=== PATIENT | female | born 1970 ===

== ENCOUNTER 2017-01-27 06:20 | Day surgery (SDC) | payer OTHER ==
[2017-01-27] MEDS ORDERED: cefOXitin IV 2 gm in Dextrose 2 GM/50 ML BAG IVPB ONE (07:55)
[2017-01-27] MEDS ORDERED: Midazolam 2 MG/2 ML VIAL ONE (07:57)
[2017-01-27] MEDS ORDERED: Propofol 10 mg/ml Inj (20 ML) ONE (07:57)
[2017-01-27] MEDS ORDERED: Lactated Ringer's 1,000 ML IV ONE (08:31)
--- NOTE | 2017-01-27 08:42 | PCM.SURG1 ---
Surgeon's Initial Post Op Note - Surgeon's Notes Surgeon: dr fonseca Senior Qualitative Researcher: none Type of Anesthesia: General LMA Anesthesia Administered By: dr flores Pre-Operative Diagnosis: 46 yr with abnormal uterine bleeding r/o polyp Operative Findings: see the op reort Post-Operative Diagnosis: same with cerrvical polyp and submusal fibroid Operation Performed: myasure/d&c, hysterscopy Specimen/Specimens Removed: ecc. emc. cervical polyp. r/o myoma Estimated Blood Loss: EBL {In ML}: 30 Blood Products Given: N/A Drains Used: No Drains Post-Op Condition: Good Date of Surgery/Procedure: 01/27/17 Time of Surgery/Procedure: 09:00
[2017-01-27 10:00] VITALS: RESP 16; O2SAT 100
[2017-01-27 11:08] VITALS: BP 98/52; PULSE 70; TEMP 97.9
--- NOTE | 2017-01-27 16:15 | OP ---
PROCEDURE DATE: PREOPERATIVE DIAGNOSES: A 46 years old, 4, para with abnormal uterine bleeding, rule out polyp. POSTOPERATIVE DIAGNOSES: A 46 years old 4, para with abnormal uterine bleeding, rule out polyp, with a submucosal fibroid. PROCEDURE: MyoSure dilation and curettage, hysteroscopy, cervical polypectomy. SURGEON: Júnior Gillespie MD. GAME SHOW HOST SURGEON: None. TYPE OF ANESTHESIA: General anesthesia. ANESTHESIA ADMINISTERED BY: Dr. Ivan Lamb. ESTIMATED BLOOD LOSS: 30 mL. COMPLICATIONS: None. DESCRIPTION OF PROCEDURE: After informed consent was obtained, the patient was brought to the operating room, placed on the table, general anesthesia was given. Once the anesthesia was given, the patient was prepped and draped in the normal sterile fashion. Anterior lip of the cervix was grasped with a tenaculum, gentle dilatation of the cervix was done. Hysteroscope was introduced and found to be polyp. There was submucosal fibroid on the posterior wall of the uterus and the upper fundus and there was a polyp. It was found on the cervical polyps. Then, the decision was to use the MyoSure. MyoSure was used to take out the polyp. The pictures were taken before and after. After that, cervical polyp was taken with a ring forceps. It was grasped and removed, it was sent to the pathology. Sharp curettage of the endometrium was done. It was sent to pathology. ECC was done and it was sent to the pathology too. . It was found to be clean. After that, the tenaculum was taken out of the anterior lip of the cervix. The patient tolerated the procedure well. All lap, sponge, and instrument counts were correct x2. Júnior Gillespie MD
== END 2017-01-27 10:35 | disposition home or self-care (01) ==
LOC: C.SDS 06:20
PROVIDERS: ATTEND Obstetrics & Gynecology
DX: D25.0 Submucous leiomyoma of uterus (principal); N84.1 Polyp of cervix uteri
CPT/HCPCS: 58558; 88305; J0694; J2001; J2250; J2704; J3010; J7070; J7120